=== PATIENT | male | born 1980 | race Two or more races ===

== ENCOUNTER 2017-05-30 02:40 | Emergency (ER) | payer OTHER ==
[2017-05-30 03:08] VITALS: BP 133/98; PULSE 95; TEMP 98.5; BMI 27.3
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
[2017-05-30] MEDS ORDERED: morphine CARPU-JECT 2 MG/1 ML DISP.SYRIN IVPUSH ONE (03:34)
== END 2017-05-30 04:45 | disposition left against medical advice (07) ==
LOC: JER 02:40
DX: K59.00 Constipation, unspecified (principal); M16.0 Bilateral primary osteoarthritis of hip; M17.4 Other bilateral secondary osteoarthritis of knee; W07.XXXA Fall from chair, initial encounter; Y93.89 Activity, other specified; Y92.038 Other place in apartment as the place of occurrence of the external cause; Y99.8 Other external cause status
CPT/HCPCS: 72192-TC; 73523-TC-FY; 74150-TC; 99282-25